=== PATIENT | female | born 1980 | race Caucasian/White ===

== ENCOUNTER 2017-02-01 19:37 | Emergency (ER) | payer OTHER | END 2017-02-02 01:11 | disposition left against medical advice (07) | LOC: ER 19:37 | DX: R55 Syncope and collapse (principal); F41.9 Anxiety disorder, unspecified; F43.10 Post-traumatic stress disorder, unspecified; Z79.899 Other long term (current) drug therapy; Z88.5 Allergy status to narcotic agent; Z88.8 Allergy status to other drugs, medicaments and biological substances | CPT/HCPCS: 36415; 96360 ==